=== PATIENT | female | born 1960 | race Caucasian/White ===

== ENCOUNTER 2018-07-21 13:45 | Emergency (ER) | payer OTHER ==
[~2018-07-21] VITALS: Ht 160 cm; Wt 128.9 kg
[2018-07-21] MEDS ORDERED: ASPIRIN 81 MG TAB.CHEW PO ONE (14:00)
--- NOTE | 2018-07-21 14:09 | PHYS DOC ---
Past History Past Medical History: Anxiety, Depression, Hypertension Past Surgical History: Tubal ligation Alcohol Use: None Drug Use: None Adult General Chief Complaint Chief Complaint: CHEST PAIN HPI HPI 57-year-old female presents with chest pain. Patient states that the pain started suddenly 2 hours prior to arrival while she was crocheting. She describes the pain as 9 out of 10, sharp and on the left side. She is also had some shortness of breath and feels clammy, but has not had overt diaphoresis. The patient does admit that she has been getting short of breath with exertion the last couple of weeks. She has not had a stress test and "quite some time". She's never had a heart attack or cardiac catheter. Patient has had a lot of stress lately. She is on medications for anxiety, blood pressure, seizure disorder. She is not diabetic. She does not have hyperlipidemia as far she knows. She denies fever or chills. Review of Systems Review of Systems Constitutional: Denies fever or chills [] Eyes: Denies change in visual acuity, redness, or eye pain [] HENT: Denies nasal congestion or sore throat [] Respiratory: shortness of breath [] Cardiovascular: No additional information not addressed in HPI [] GI: Denies abdominal pain, nausea, vomiting, bloody stools or diarrhea [] : Denies dysuria or hematuria [] Musculoskeletal: Denies back pain or joint pain [] Integument: Denies rash or skin lesions [] Neurologic: Denies headache, focal weakness or sensory changes [] Endocrine: Denies polyuria or polydipsia [] All other systems were reviewed and found to be within normal limits, except as documented in this note. Current Medications Current Medications Current Medications Medications (Trade) Dose Ordered Sig/[facility] Start Time Stop Time Status Last Admin Dose Admin Aspirin (Children'S Aspirin) 324 mg 1X ONCE 07/21/18 14:00 07/21/18 14:01 DC Allergies Allergies Allergies Coded Allergies Type Severity Reaction Last Updated Verified Penicillins Allergy Unknown 07/21/18 Yes acetaminophen Allergy Unknown 07/21/18 Yes bupropion Allergy Unknown 07/21/18 Yes hydrocodone Allergy Unknown 07/21/18 Yes oxycodone Allergy Unknown 07/21/18 Yes Physical Exam Physical Exam Constitutional: Well developed, morbid obesity, well nourished, no acute distress, non-toxic appearance. [] HENT: Normocephalic, atraumatic, bilateral external ears normal, oropharynx moist, no oral exudates, nose normal. [] Eyes: PERRLA, EOMI, conjunctiva normal, no discharge. [] Neck: Normal range of motion, no tenderness, supple, no stridor. [] Cardiovascular:Heart rate regular rhythm, no murmur [] Lungs & Thorax: Bilateral breath sounds clear to auscultation [] Abdomen: Bowel sounds normal, soft, no tenderness, no masses, no pulsatile masses. [] Skin: Warm, dry, no erythema, no rash. [] Back: No tenderness, no CVA tenderness. [] Extremities: No tenderness, no cyanosis, no clubbing, ROM intact, no edema. [] Neurologic: Alert and oriented X 3, normal motor function, normal sensory function, no focal deficits noted. [] Psychologic: Affect normal, judgement normal, mood anxious [] Current Patient Data Vital Signs Vital Signs Date Time Temp Pulse Resp B/P (MAP) Pulse Ox O2 Delivery O2 Flow Rate FiO2 07/21/18 13:52 71 20 99 EKG EKG Sinus rhythm, rate 75, normal axis, no ST elevations or depressions.[] Radiology/Procedures Radiology/Procedures [] Impressions: AP chest. HISTORY: Chest pain, history of asthma AP view was taken of the chest. Patient's taken a poor inspiration. The lung bases are poorly visualized especially on the left. A lateral view could be of benefit. There are no definite infiltrates. Heart is normal in size without heart failure. IMPRESSION: 1. Poor inspiration. 2. No definite infiltrates. Electronically signed by: Rosa Isela Iraheta MD (07/21/2018 2:19 PM) [facility] DICTATED AND SIGNED BY: ROSA ISELA IRAHETA MD DATE: 07/21/18 1419 CC: DEJON CRABTREE DO; PCP,NO Course & Med Decision Making Course & Med Decision Making Pertinent Labs and Imaging studies reviewed. (See chart for details) An EKG was performed within 10 minutes of arrival to the room. 324 mg of aspirin was given. One sublingual nitroglycerin was given to the patient which improved her pain to a 7. The patient's labs are unremarkable. Her EKG is unremarkable. Her chest x-ray is unremarkable. Her HEART score is 3. The patient 's pain has continued to decrease without further intervention to a 5 out of 10. The patient was given a GI cocktail which helped significantly. I give the patient the option of admission for chest pain rule out versus going home and she has elected to go home. If any of her symptoms return, she will return to the emergency room. She is stable for discharge at this time. [] Dragon Disclaimer Dragon Disclaimer This electronic medical record was generated, in whole or in part, using a voice recognition dictation system. Departure Departure: Impression: Primary Impression: Chest pain Additional Impression: GERD (gastroesophageal reflux disease) Disposition: HOME, SELF-CARE Condition: STABLE Referrals: PCP,NO (PCP) Patient Instructions: Chest Pain (Nonspecific), [id number], Gastroesophageal Reflux Disease, Adult, [id number] Problem Qualifiers Primary Impression: Chest pain Chest pain type: unspecified Qualified Codes: R07.9 - Chest pain, unspecified Additional Impression: GERD (gastroesophageal reflux disease) Esophagitis presence: without esophagitis Qualified Codes: K21.9 - Gastro- esophageal reflux disease without esophagitis DEJON CRABTREE DO Jul 21, 2018 14:09
[2018-07-21 14:11] VITALS: BP 145/75
[2018-07-21 14:14] LABS: BASO # 0.1 x10^3/uL (0.0-0.2); BASO % 1 % (0-3); EOS # 0.1 x10^3/uL (0.0-0.7); EOS % 2 % (0-3); HEMATOCRIT 36.6 % (36.0-47.0); HEMOGLOBIN 12.6 g/dL (12.0-15.5); LYMPH # 2.6 x10^3/uL (1.0-4.8); LYMPH % 33 % (24-48); MEAN CORPUSCULAR HEMOGLOBIN 30 pg (25-35); MEAN CORPUSCULAR HGB CONC 34 g/dL (31-37); MEAN CORPUSCULAR VOLUME 86 fL (79-100); MONO # 0.6 x10^3/uL (0.0-1.1); MONO % 7 % (0-9); NEUT # 4.4 x10^3uL (1.8-7.7); NEUT % 57 % (31-73); PLATELET COUNT 339 x10^3/uL (140-400); RED BLOOD COUNT 4.25 x10^6/uL (3.50-5.40); RED CELL DISTRIBUTION WIDTH 13.7 % (11.5-14.5); WHITE BLOOD COUNT 7.8 x10^3/uL (4.0-11.0)
[2018-07-21] MEDS ORDERED: NITROGLYCERIN SUBLINGUAL 0.4 MG BOTTLE OF 25. SL ONE (14:15)
--- NOTE | 2018-07-21 14:22 | RAD ---
AP chest. HISTORY: Chest pain, history of asthma AP view was taken of the chest. Patient's taken a poor inspiration. The lung bases are poorly visualized especially on the left. A lateral view could be of benefit. There are no definite infiltrates. Heart is normal in size without heart failure. IMPRESSION: 1. Poor inspiration. 2. No definite infiltrates. Electronically signed by: Delon Belcher MD (07/21/2018 2:19 PM) [facility]
[2018-07-21 14:26] LABS: ALBUMIN 3.5 g/dL (3.4-5.0); ALBUMIN/GLOBULIN RATIO 0.9 (1.0-1.7); CALCIUM 8.7 mg/dL (8.5-10.1); GFR 56.9; POTASSIUM 3.9 mmol/L (3.5-5.1); TOTAL BILIRUBIN 0.2 mg/dL (0.2-1.0); TOTAL PROTEIN 7.4 g/dL (6.4-8.2)
[2018-07-21] MEDS ORDERED: IV NORMAL SALINE 1,000ML 1,000 ML IV ONE (15:45)
[2018-07-21] MEDS ORDERED: LIDO:MAALOX 1:1 20 ML SINGLE DOSE. PO ONE (16:00)
--- NOTE | 2018-07-22 06:48 | EKG ---
[address] [address] Test Date: 2018-07-21 Test Time: 13:54:34 Pat Name: MAGDI EID Department: Room: Gender: F Adjunct Instructor In Economics: RACHEL : 1960 Requested By: DEJON CRABTREE Order Number: [id number] Reading MD: Jimenez Mcgowan Measurements Intervals [place] Rate: 75 P: 53 AK: 134 QRS: 17 QRSD: 86 T: 63 QT: 380 QTc: 427 Interpretive Statements SINUS RHYTHM NORMAL ECG Electronically Signed On 07-29-2018 12:52:38 CDT by Jimenez Mcgowan
== END 2018-07-21 17:10 | disposition home or self-care (01) ==
LOC: ER 13:45
DX: K21.9 Gastro-esophageal reflux disease without esophagitis (principal); F41.9 Anxiety disorder, unspecified; F32.9 Major depressive disorder, single episode, unspecified; I10 Essential (primary) hypertension; Z88.0 Allergy status to penicillin; Z88.6 Allergy status to analgesic agent; Z88.5 Allergy status to narcotic agent
CPT/HCPCS: 36415; 71045; 80053; 84484; 85025; 93005; 99285-25; J7030

== ENCOUNTER 2018-08-28 14:16 | Emergency (ER) | payer OTHER ==
[~2018-08-28] VITALS: Ht 160 cm; Wt 128.9 kg
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
[2018-08-28] MEDS ORDERED: IOHEXOL 300 MG/ML 75 ML VIAL. IV ONE (15:30)
[2018-08-28] MEDS ORDERED: PANTOPRAZOLE IV 40 MG VIAL. IVP ONE (15:30)
[2018-08-28] MEDS ORDERED: IV NORMAL SALINE 1,000ML 1,000 ML IV SCH (15:30)
[2018-08-28] MEDS ORDERED: FAMOTIDINE 20 MG/2 ML VIAL IVP ONE (15:30)
[2018-08-28 16:01] LABS: BASO % 1 % (0-3); EOS # 0.1 x10^3/uL (0.0-0.7); EOS % 1 % (0-3); HEMATOCRIT 36.8 % (36.0-47.0); HEMOGLOBIN 12.4 g/dL (12.0-15.5); LYMPH % 24 % (24-48); MEAN CORPUSCULAR HEMOGLOBIN 29 pg (25-35); MEAN CORPUSCULAR HGB CONC 34 g/dL (31-37); MEAN CORPUSCULAR VOLUME 87 fL (79-100); MONO # 0.5 x10^3/uL (0.0-1.1); MONO % 6 % (0-9); NEUT # 5.8 x10^3uL (1.8-7.7); NEUT % 69 % (31-73); PLATELET COUNT 329 x10^3/uL (140-400); RED BLOOD COUNT 4.25 x10^6/uL (3.50-5.40); RED CELL DISTRIBUTION WIDTH 13.8 % (11.5-14.5); WHITE BLOOD COUNT 8.5 x10^3/uL (4.0-11.0)
[2018-08-28 16:08] LABS: BACTERIA,URINE FEW /HPF (0-FEW); BILIRUBIN,URINE NEG (NEG); CLARITY,URINE CLOUDY; COLOR,URINE YELLOW; GLUCOSE,URINE NEG (NEG); NITRITE,URINE NEG (NEG); RBC,URINE OCC /HPF (0-2); SQUAMOUS EPITHELIAL CELL,UR OCC /LPF; UROBILINOGEN,URINE 0.2 mg/dL (0.2 mg/dL)
[2018-08-28 16:12] LABS: ALBUMIN 3.7 g/dL (3.4-5.0); CALCIUM 8.8 mg/dL (8.5-10.1); DIRECT BILIRUBIN 0.1 mg/dL (0.0-0.2); GFR 56.7; POTASSIUM 4.2 mmol/L (3.5-5.1); TOTAL BILIRUBIN 0.3 mg/dL (0.2-1.0)
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
[2018-08-28] MEDS ORDERED: OXYC1TAB15 PO (17:22)
[2018-08-28 17:31] VITALS: BP 123/51
== END 2018-08-28 17:46 | disposition home or self-care (01) ==
LOC: ER 14:16
DX: S30.1XXA Contusion of abdominal wall, initial encounter (principal); K80.20 Calculus of gallbladder without cholecystitis without obstruction; R91.1 Solitary pulmonary nodule; F41.9 Anxiety disorder, unspecified; F32.9 Major depressive disorder, single episode, unspecified; I10 Essential (primary) hypertension; Z98.51 Tubal ligation status; Z88.0 Allergy status to penicillin; Z88.6 Allergy status to analgesic agent; Z88.5 Allergy status to narcotic agent; Z88.8 Allergy status to other drugs, medicaments and biological substances; V49.59XA Passenger injured in collision with other motor vehicles in traffic accident, initial encounter; Y93.89 Activity, other specified; Y92.488 Other paved roadways as the place of occurrence of the external cause; Y99.8 Other external cause status
CPT/HCPCS: 36415; 71260; 74177; 80048; 80076; 81001; 85025; 96374; 96375; 99285; C9113; J3010; J3490; Q9967; J7030

== ENCOUNTER → 2018-09-06 | Outpatient (CLI) | payer OTHER ==
[2018-08-28 17:31] VITALS: BP 123/51
[~2018-09-06] VITALS: Ht 160 cm; Wt 127.0 kg
[~2018-09-06] MED LIST: OXYC1TAB15 PO; SINCALIDE 2.54 MCG in IV NORMAL SALINE 50ML 30 ML IV ONE
--- NOTE | 2018-09-06 13:27 | RAD ---
Radionuclide hepatobiliary scan with gallbladder ejection fraction, 09/06/2018: HISTORY: Right upper quadrant pain and nausea Following IV injection of 5.5 mCi of technetium 99m Choletec there was prompt uptake of the radionuclide from the blood stream by the liver. Activity is present in the bile ducts at 15 minutes and in the small bowel at 20 minutes. Gallbladder activity developed at 25 minutes. Additional imaging of the gallbladder was then performed following IV injection of 2.5 mcg of cholecystokinin. The gallbladder ejection fraction is low, measured at 8 percent. IMPRESSION: 1. No evidence of cystic duct or common bile duct obstruction. 2. Low gallbladder ejection fraction of 8 percent. Electronically signed by: Delmer Ramirez MD (09/06/2018 1:24 PM) [facility]
== END | disposition home or self-care (01) ==
LOC: NM 09:38
PROVIDERS: ATTEND Registered Nurse
DX: R10.11 Right upper quadrant pain (principal); R11.0 Nausea
CPT/HCPCS: 78227; A9537; J2805

== ENCOUNTER → 2020-04-22 | Outpatient (CLI) | payer OTHER, MEDICAID ==
[~2020-04-22] MED LIST changes: -SINCALIDE 2.54 MCG in IV NORMAL SALINE 50ML 30 ML IV ONE
[2020-04-22 12:22] LABS: CALCIUM 8.7 mg/dL (8.5-10.1); CREATININE 0.7 mg/dL (0.6-1.0); GFR 85.4; POTASSIUM 3.7 mmol/L (3.5-5.1)
== END ==
LOC: LAB 11:23
PROVIDERS: ATTEND Internal Medicine Cardiovascular Disease
DX: I10 Essential (primary) hypertension (principal)
CPT/HCPCS: 36415; 80048; 80061

== ENCOUNTER → 2020-05-24 | Outpatient (CLI) | payer OTHER, MEDICAID ==
--- NOTE | 2020-05-24 17:03 | CARD ---
MR#: [id number] Date of Study: 05/24/2020 Ordering Physician: MELANIE MCWILLIAMS, Referring Physician: MELANIE MCWILLIAMS, Tech: Lora Jimenez, [facility] APPROVED REPORT EXAM: Two-dimensional and M-mode echocardiogram with Doppler and color Doppler. Other Information Quality : AverageHR: 74bpm INDICATION Dyspnea RISK FACTORS Hypertension Asthma 2D DIMENSIONS RVDd2.8 (2.9-3.5cm)Left Atrium(2D)3.4 (1.6-4.0cm) IVSd1.0 (0.7-1.1cm)Aortic Root(2D)3.1 (2.0-3.7cm) LVDd5.2 (3.9-5.9cm)LVOT Diameter2.0 (1.8-2.4cm) PWd1.0 (0.7-1.1cm)LVDs3.4 (2.5-4.0cm) FS (%) 34.0 %SV80.6 ml Aortic Valve AoV Peak Tim.152.6cm/sAoV VTI29.1cm AO Peak GR.9.3mmHgLVOT Peak Tim.162.1cm/s LVOT VTI 33.47cmAO Mean GR.5mmHg SHAKIR (VMAX)3.01kc9UDO (VTI)3.64cm2 Mitral Valve MV E Dfuwtcot89.1cm/sMV DECEL YEAB966vw MV A Vgwolguo75.6cm/sE/A Ratio1.1 Pulmonary Valve PV Peak Udrpguqc785.9cm/sPV Peak Grad.5mmHg Tricuspid Valve TR P. Pgorqmcj094bb/sRAP DITQGSKI1jvTv TR Peak Gr.20ozAvPDMQ75bhJt Pulmonary Vein S1 Sjnrqmbo57.4cm/sD2 Mikqvspv33.9cm/s LEFT VENTRICLE The left ventricle is normal size. There is normal left ventricular wall thickness. The left ventricu lar systolic function is normal and the ejection fraction is within normal range. The Ejection Fracti on is 55-60%. There is normal LV segmental wall motion. Transmitral Doppler flow pattern is Grade II- pseudonormal filling dynamics. RIGHT VENTRICLE The right ventricle is normal size. There is normal right ventricular wall thickness. The right ventr icular systolic function is normal. ATRIA The left atrium size is normal. The right atrium size is normal. The interatrial septum is intact wit h no evidence for an atrial septal defect or patent foramen ovale as noted on 2-D or Doppler imaging. AORTIC VALVE The aortic valve is normal in structure and function. Doppler and Color Flow revealed no significant aortic regurgitation. There is no significant aortic valvular stenosis. Calculated aortic valve area is 3.9 cm2 with maximum pressure gradient of 10 mmHg and mean pressure gradient of 5 mmHg. MITRAL VALVE The mitral valve is normal in structure and function. There is no evidence of mitral valve prolapse. There is no mitral valve stenosis. Doppler and Color-flow revealed trace mitral regurgitation. TRICUSPID VALVE The tricuspid valve is normal in structure and function. Doppler and Color Flow revealed trace tricus pid regurgitation with an estimated PAP of 32 mmHg. There is no tricuspid valve stenosis. PULMONIC VALVE The pulmonic valve is not well visualized. Doppler and Color Flow revealed trace pulmonic valvular re gurgitation. GREAT VESSELS The aortic root is normal in size. The IVC was not visualized. PERICARDIAL EFFUSION There is no evidence of significant pericardial effusion. Critical Notification Critical Value: No <Conclusion> The left ventricle is normal size. The left ventricular systolic function is normal and the ejection fraction is within normal range. The Ejection Fraction is 55-60%. Doppler and Color Flow revealed no significant aortic regurgitation. There is no significant aortic valvular stenosis. Doppler and Color-flow revealed trace mitral regurgitation. Doppler and Color Flow revealed trace tricuspid regurgitation with an estimated PAP of 32 mmHg. Signed by : Isaiah Watkins MD Electronically Approved : 05/24/2020 17:03:26
== END ==
LOC: ECHO 12:38
PROVIDERS: ATTEND Internal Medicine Cardiovascular Disease
DX: R06.00 Dyspnea, unspecified (principal)
CPT/HCPCS: 93306

== ENCOUNTER → 2020-12-31 | Outpatient (CLI) | payer OTHER, MEDICAID ==
[2020-12-31 12:11] LABS: ALBUMIN 3.5 g/dL (3.4-5.0); ALBUMIN/GLOBULIN RATIO 0.9 (1.0-1.7); CALCIUM 8.9 mg/dL (8.5-10.1); CREATININE 0.8 mg/dL (0.6-1.0); GFR 72.9; POTASSIUM 3.7 mmol/L (3.5-5.1); TOTAL BILIRUBIN 0.4 mg/dL (0.2-1.0); TOTAL PROTEIN 7.3 g/dL (6.4-8.2)
== END ==
LOC: LAB 10:22
PROVIDERS: ATTEND Internal Medicine Cardiovascular Disease
DX: I10 Essential (primary) hypertension (principal)
CPT/HCPCS: 36415; 80053; 80061

== ENCOUNTER → 2021-07-14 | Outpatient (CLI) | payer OTHER, MEDICAID ==
--- NOTE | 2021-07-14 11:29 | RAD ---
EXAMINATION: CT Chest Without IV contrast. INDICATION:60 years, Female, pulmonary nodule. Follow-up exam. COMPARISON: 08/28/2018. TECHNIQUE: Spiral CT was obtained from the jugular notch through the posterior costophrenic recess. S agittal and coronal reformats were obtained. Exposure: One or more of the following individualized dose reduction techniques were utilized for thi s examination: 1. Automated exposure control 2. Adjustment of the mA and/or kV according to patient size 3. Use of iterative reconstruction technique. FINDINGS: LUNGS/PLEURA: Central airways are patent. No focal consolidation, pleural effusion or pneumothorax. F ew scattered bilateral solid pulmonary nodules are unchanged in size since August 2018 and most likely b enign. For example 0.5 cm fissure based nodule in the anterior left lower lobe (series 2 image 182). 0.4 cm fissure based nodule in the anterior right lower lobe (series 2 image 129). No new or enlarged pulmonary nodule. MEDIASTINUM: No pathologic mediastinal or hilar adenopathy. The thoracic aorta enhances normal in nely iber. Enlarged pulmonary trunk measures up to 3.4 cm in diameter., findings can be seen in pulmonary arterial. The heart is normal in size. No pericardial effusion. Severe calcified coronary atheroscler osis. The visualized thyroid and the esophagus are unremarkable. AXILLA/SOFT TISSUE: No supraclavicular or axillary adenopathy. Regional soft tissues are within alysia l limits. UPPER ABDOMEN: Hepatomegaly with diffuse steatosis. BONES: No evidence of acute fractures or aggressive osseous lesions. Multilevel degenerative changes in the spine. IMPRESSION: 1. Few scattered bilateral solid pulmonary nodules are unchanged in size since August 2018 and most lik eddie benign. 2. Enlarged pulmonary trunk, which can be seen with pulmonary artery hypertension. 3. Severe calcified coronary atherosclerosis. 4. Hepatomegaly with diffuse steatosis. Electronically signed by: Anum Angel MD (07/14/2021 11:27 AM) [facility]
== END ==
LOC: CT 08:48
PROVIDERS: ATTEND Family Medicine
DX: R91.1 Solitary pulmonary nodule (principal); I25.10 Atherosclerotic heart disease of native coronary artery without angina pectoris; K76.0 Fatty (change of) liver, not elsewhere classified; M47.814 Spondylosis without myelopathy or radiculopathy, thoracic region
CPT/HCPCS: 71250

== ENCOUNTER → 2021-07-21 | Outpatient (CLI) | payer OTHER, MEDICAID ==
--- NOTE | 2021-07-21 15:35 | RAD ---
EXAM: XR KNEE_AP BILAT STANDING, XR LT WRIST 3VIEWS, XR KNEE_LT 1-2 VIEWS 07/21/2021 1:27 PM CLINICAL INDICATION: Chronic pain wrist and knee pain, no injury COMPARISON: None TECHNIQUE: Standing AP view of the bilateral knees. Lateral and sunrise view of the left knee. PA, o blique, and lateral views of the left wrist. FINDINGS: Left knee: There is a left total knee prosthesis. No periprosthetic lucency or fracture. No joint eff usion. 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 Left wrist: No acute fracture. Alignment is normal. Joint spaces are maintained. There is no soft tis cristina abnormality. IMPRESSION: 1. Uncomplicated left total knee prosthesis. 2. No acute osseous abnormality of the left wrist. Electronically signed by: Kathy Alcantar MD (07/21/2021 3:32 PM) [id number]
== END ==
LOC: RAD 12:55
PROVIDERS: ATTEND Orthopaedic Surgery Sports Medicine
DX: M25.862 Other specified joint disorders, left knee (principal); M25.532 Pain in left wrist; Z96.652 Presence of left artificial knee joint
CPT/HCPCS: 73110; 73560; 73565